=== PATIENT | female | born 1990 | race Two or more races ===

== ENCOUNTER 2023-01-16 15:35 | Emergency (ER) | payer SELFPAY ==
[~2023-01-16] VITALS: Ht 167.6 cm; Wt 91.9 kg
[2023-01-16 16:39] VITALS: BP 128/81
[2023-01-16] MEDS ORDERED: ACETAMINOPHEN 500 MG TAB PO ONE (16:45)
[2023-01-16] MEDS ORDERED: PROM1SOL4 PO (17:14)
[2023-01-16] MEDS ORDERED: ACET1CAP14 PO (17:14)
[2023-01-16] MEDS ORDERED: AZITTAB PO (17:14)
== END 2023-01-16 18:45 | disposition home or self-care (01) ==
LOC: ER 15:35
DX: J06.9 Acute upper respiratory infection, unspecified (principal); J45.909 Unspecified asthma, uncomplicated; Z20.822 Contact with and (suspected) exposure to COVID-19
CPT/HCPCS: 36415; 87426; 87804